=== PATIENT | male | born 1965 | race Caucasian/White ===

== ENCOUNTER 2018-05-07 14:25 | Inpatient (IN) | payer OTHER ==
[2018-05-07] VITALS: BP 113/54
[~2018-05-07] VITALS: Ht 175.3 cm; Wt 64.0 kg
[2018-05-07] MEDS ORDERED: DEXTROSE 50%-WATER 50 ML DISP.SYRIN ONE (14:41)
[2018-05-07 14:59] LABS: BASOPHILS % (AUTO) 0.3 % (0.0-2.0); EOSINOPHILS % (AUTO) 0.1 % (0.0-6.0); HEMATOCRIT 33 % (39-51); HEMOGLOBIN 10.8 g/dL (13.5-17.5); MEAN CORPUSCULAR HGB CONC 33 g/dl (31.0-36.0); MEAN CORPUSCULAR VOLUME 94 fL (80-96); MONOCYTES # (AUTO) 0.5 /CMM (0.1-1.30); MONOCYTES % (AUTO) 5.1 % (2.0-12.0); NEUTROPHILS # (AUTO) 7.4 /CMM (1.8-8.9); NEUTROPHILS % (AUTO) 83.5 % (43.0-81.0); PLATELET COUNT (AUTO) 362 /CMM (150-450); RDW COEFFICIENT OF VARIATION 23.5 (11.5-15.0); RED BLOOD CELL COUNT(AUTO) 3.54 MIL/uL (4.5-6.0); WHITE BLOOD COUNT (AUTO) 8.9 K/uL (4.3-11.0)
[2018-05-07] MEDS ORDERED: IV NS 0.9% 1,000 ML BAG IV ONE (15:00)
[2018-05-07] MEDS ORDERED: VANCOMYCIN 1 GM in IV D5W 250 ML IV ONE (15:00)
[2018-05-07] MEDS ORDERED: DEXTROSE 50%-WATER 50 ML DISP.SYRIN IVP ONE (15:00)
[2018-05-07] MEDS ORDERED: IV NS 0.9% 1,000 ML IV ONE (15:00)
[2018-05-07] MEDS ORDERED: PIPERACILLIN /TAZOBACTAM 3.375 G in IV D5W 50 ML IV ONE (15:00)
[2018-05-07 15:15] LABS: ALANINE AMINOTRANSFERASE 253 U/L (12-78); ALBUMIN 2.1 g/dL (3.4-5.0); ALKALINE PHOSPHATASE 120 U/L (46-116); ASPARTATE AMINOTRANSFERASE 336 U/L (15-37); BILIRUBIN,DIRECT 1.1 mg/dL (0.0-0.2); BILIRUBIN,TOTAL 2.4 mg/dL (0.2-1.0); CALCIUM, SERUM 8.8 mg/dL (8.5-10.1); CHLORIDE 93 mmol/L (98-107); CREATININE 1.7 mg/dL (0.6-1.3); GLUCOSE 341 mg/dL (74-106); INR 2.59 (0.85-1.15); POTASSIUM 4.6 mmol/L (3.5-5.1); SODIUM SERUM 130 mmol/L (136-145); TOTAL PROTEIN, SERUM 6.3 g/dL (6.4-8.2); UREA NITROGEN, BLOOD 31 mg/dL (7-18)
[2018-05-07 15:17] LABS: CARBON DIOXIDE 10 mmol/L (21-32); TROPONIN I 0.157 ng/mL (0.00-0.056)
[2018-05-07 15:31] LABS: ABG OXYGEN SATURATION 93.8 % (92.0-98.5); ABG PCO2 11.5 mmHg (35.0-45.0); ABG PH 7.303 (7.350-7.450); ABG PO2 88.6 mmHg (75.0-100.0); AaDO2 154.7 mmHg; MetHb 0.6 % (0.0-1.5); O2Hb 92.3 % (94.0-97.0); SITE, ABG Right Radial; VENT MODE, BG 4L NASAL CANNULA
--- NOTE | 2018-05-07 16:04 | NUR ---
pt extremities cool to touch unable to get accurate O2 sat readings. Oxygen applied- MD aware ABG ordered
[2018-05-07] MEDS ORDERED: IV NS 0.9% 1,000 ML BAG IV PRN (17:00)
[2018-05-07] MEDS ORDERED: LORA-258 PO (17:10)
[2018-05-07] MEDS ORDERED: FAMO-131 PO (17:10)
[2018-05-07] MEDS ORDERED: ESCI5TAB PO (17:10)
[2018-05-07] MEDS ORDERED: FERR325T24 PO (17:10)
[2018-05-07] MEDS ORDERED: ENOX40DI SQ (17:10)
[2018-05-07] MEDS ORDERED: MELA5TAB PO (17:10)
[2018-05-07] MEDS ORDERED: FURO-145 PO (17:10)
[2018-05-07] MEDS ORDERED: LIDO30AD10 TP (17:10)
[2018-05-07] MEDS ORDERED: TRAM50TA2 PO (17:10)
[2018-05-07] MEDS ORDERED: NAFC2VIA IV (17:10)
[2018-05-07] MEDS ORDERED: GABA300C PO (17:10)
[2018-05-07] MEDS ORDERED: ASCO-340 PO (17:10)
[2018-05-07] MEDS ORDERED: BACL5TAB PO (17:10)
[2018-05-07] MEDS ORDERED: QUET50TA PO (17:10)
[2018-05-07] MEDS ORDERED: CAPT12.53 PO (17:10)
--- NOTE | 2018-05-07 17:24 | NUR ---
Ct back from CT. Dr Castle in to see patient-pt for transfer to [facility]- [facility] w/KYLIE Escobar. Transported to [facility] per rivera w/RN
--- NOTE | 2018-05-07 17:45 | NUR ---
[facility]/RN INITIAL NOTES RECEIVED PT FROM ER, VIA JAYCEE. ALERT, APPEARS DROWSY AND CONFUSED. PLACED ON TELEMONITOR, SINUS TACHY ON TELEMONITOR. SAFETY MEASURES IN PLACED. PERTINENT ASSESSMENT DONE. VS TAKEN. AWAITING FOR ADMISSION ORDER. WILL CONT TO MONITOR Addendum: 05/07/18 at 2003 by CECILIA GOULD RN PRATIK PICC LINE INTACT AND PATENT, STILL FOR URINE COLLECTION.
[2018-05-07 17:50] VITALS: BP 126/60
[2018-05-07] MEDS ORDERED: ENOXAPARIN SODIUM 40 MG/0.4 ML DISP.SYRIN SQ SCH (18:00)
[2018-05-07] MEDS ORDERED: ZOLPIDEM TARTRATE 5 MG TABLET PO PRN (18:00)
[2018-05-07] MEDS ORDERED: HYDROCODONE/APAP 5/325MG 1 EACH TABLET PO PRN (18:00)
[2018-05-07] MEDS ORDERED: Z GUARD REMEDY 2 OZ OINT TP PRN (18:00)
[2018-05-07] MEDS ORDERED: MAG HYDROX/AL HYDROX/SIMETH 30 ML UDC PO PRN (18:00)
[2018-05-07] MEDS ORDERED: ACETAMINOPHEN 325 MG TABLET PO PRN (18:00)
[2018-05-07] MEDS ORDERED: ONDANSETRON HCL/PF 4 MG/2 ML VIAL IVP PRN (18:00)
[2018-05-07] MEDS ORDERED: MAGNESIUM HYDROXIDE 30 ML UDC PO PRN (18:00)
--- NOTE | 2018-05-07 18:00 | NUR ---
RN NOTES 1800 DUE LOVENOX SQ HELD, PT/INR HIGH
[2018-05-07] MEDS ORDERED: FEE PK DOSING 1 MIN EA MC ONE (18:34)
[2018-05-07 20:00] VITALS: BP 122/56
--- NOTE | 2018-05-07 20:00 | NUR ---
TELE-TD/CHAIR AND COUCH MAKER SPOKE WITH KHUSHBOO EQUAL OPPORTUNITY OFFICER REGARDING TROPONIN RESULT 0.245 NEW ORDERS RECEIVED AND CARRIED OUT. WILL CONTINUE TO MONITOR CLOSELY.
[2018-05-07] MEDS ORDERED: ASPIRIN 325 MG TABLET PO ONE (20:30)
[2018-05-07] MEDS: LIDOCAINE 5% (PATCH) 1 EA PATCH TP SCH (21:02)
[2018-05-07] MEDS: QUETIAPINE FUMARATE 25 MG TABLET PO SCH (21:03)
[2018-05-07] MEDS: PIPERACILLIN /TAZOBACTAM 4.5 G in IV D5W 50 ML IV SCH (21:03)
[2018-05-07] MEDS ORDERED: Medication Not On Formulary EA (Melatonin 10 MG) PO SCH (22:00)
[2018-05-08] VITALS (7 sets, daily range): BP systolic 113–134; BP diastolic 54–65
[2018-05-08] MEDS: Sodium Bicarbonate 100 MEQ in IV D5W 1,000 ML IV PRN ×3 (02:12→21:49)
[2018-05-08] MEDS: PIPERACILLIN /TAZOBACTAM 4.5 G in IV D5W 50 ML IV SCH ×4 (02:45→21:54)
[2018-05-08] MEDS: VANCOMYCIN 0.75 GM in IV D5W 250 ML IV SCH ×2 (03:33→16:04)
[2018-05-08] MEDS: QUETIAPINE FUMARATE 25 MG TABLET PO SCH (05:08)
--- NOTE | 2018-05-08 07:30 | NUR ---
[facility] RN NOTES RECEIVED PT IN NO ACUTE DISTRESS IN BED. PT IS A/O X 1-2 AND CONFUSED KNOWN. PT IS ON O2 VIA N/C @4 LTRS AND TOLERATING WELL. PT NOT C/O ANY SOB, DIFFICULTY BREATHING OR PAIN AT THIS TIME. LEFT PICC THAT IS CLEAN DRY INTACT. BED IN LOW LOCK POSITION WITH RIALS UP X 2. CALL LIGHT WITHIN REACH AND ALL SAFETY MEASURE ENSURED AND CARRIED OUT. WILL CONTINUE TO MONITOR.
[2018-05-08 07:31] LABS: BASOPHILS # (AUTO) 0.2 /CMM (0.0-0.2); BASOPHILS % (AUTO) 1.3 % (0.0-2.0); EOSINOPHILS % (AUTO) 0.1 % (0.0-6.0); HEMATOCRIT 33 % (39-51); HEMOGLOBIN 10.4 g/dL (13.5-17.5); LYMPHOCYTES # (AUTO) 1.8 /CMM (0.8-4.8); LYMPHOCYTES % (AUTO) 14.2 % (20.0-44.0); MEAN CORPUSCULAR HGB CONC 32 g/dl (31.0-36.0); MEAN CORPUSCULAR VOLUME 93 fL (80-96); MONOCYTES # (AUTO) 1.2 /CMM (0.1-1.30); MONOCYTES % (AUTO) 9.8 % (2.0-12.0); NEUTROPHILS # (AUTO) 9.4 /CMM (1.8-8.9); NEUTROPHILS % (AUTO) 74.6 % (43.0-81.0); PLATELET COUNT (AUTO) 303 /CMM (150-450); RDW COEFFICIENT OF VARIATION 24.3 (11.5-15.0); RED BLOOD CELL COUNT(AUTO) 3.56 MIL/uL (4.5-6.0); WHITE BLOOD COUNT (AUTO) 12.6 K/uL (4.3-11.0)
[2018-05-08 07:55] LABS: THYROID STIMULATING HORMONE 5.375 uIU/mL (0.358-3.74)
[2018-05-08 08:07] LABS: ALBUMIN 2.1 g/dL (3.4-5.0); BILIRUBIN,TOTAL 2.1 mg/dL (0.2-1.0); CALCIUM, SERUM 8.7 mg/dL (8.5-10.1); CREATININE 1.7 mg/dL (0.6-1.3); PHOSPHORUS 5.4 mg/dL (2.5-4.9); POTASSIUM 4.2 mmol/L (3.5-5.1); TOTAL PROTEIN, SERUM 6.4 g/dL (6.4-8.2)
[2018-05-08] MEDS: ASPIRIN 81 MG TAB.CHEW PO SCH (08:51)
[2018-05-08] MEDS: BACLOFEN (10 MG) 10 MG TABLET PO SCH ×3 (08:53→17:10)
[2018-05-08] MEDS: GABAPENTIN 300 MG CAPSULE PO SCH ×2 (08:53→17:10)
[2018-05-08] MEDS: ASCORBIC ACID 500 MG TABLET PO SCH (08:54)
[2018-05-08] MEDS: LIDOCAINE 5% (PATCH) 1 EA PATCH TP SCH ×2 (08:54→21:00)
[2018-05-08] MEDS ORDERED: ESCITALOPRAM OXALATE (10 MG) 10 MG TABLET PO SCH (09:00)
[2018-05-08] MEDS: ALBUTEROL HALF STRENGTH 1.25 MG/3 ML VIAL.NEB NEB SCH ×3 (11:00→19:51)
[2018-05-08] MEDS: IPRATROPIUM NEB FS 0.5 MG/2.5 ML AMPUL.NEB NEB SCH ×3 (11:00→19:51)
[2018-05-08 13:05] LABS: CALCIUM, SERUM 8.6 mg/dL (8.5-10.1); CREATININE 1.7 mg/dL (0.6-1.3); POTASSIUM 3.6 mmol/L (3.5-5.1)
[2018-05-08 13:20] LABS: ALBUMIN 2.1 g/dL (3.4-5.0); TOTAL PROTEIN, SERUM 6.3 g/dL (6.4-8.2)
[2018-05-08 14:34] LABS: INR 2.69 (0.87-1.13)
--- NOTE | 2018-05-08 19:30 | NUR ---
RN INITIAL SHIFT NOTES RECEIVED PATIENT IN BED, AWAKE, ALERT AND ORIENTED X1 TO SELF, RESPONSIVE TO TACTILE STIMULI, UNABLE TO FOLLOW COMMANDS. WHILE RESTING, BREATHING EVEN AND NONLABORED, HOWEVER PATIENT NOTED TO BE SHORT OF BREATH UPON TACTILE STIMULATION. ON VP OF CUSTOMER EXPERIENCE STRATEGY, SHOWING SINUS TACHYCARDIA. TOLERATING O2 VIA NC @ 3LPM. RIGHT UPPER ARM PICC PATENT AND INTACT, FLUSHED WITH NS, ONGOING IVF BICARB GTT INFUSING ORDERED. WILL CONTINUE TO CLOSELY MONITOR. WILL CONTINUE TO CLOSELY MONITOR
--- NOTE | 2018-05-08 19:30 | NUR ---
[facility] RN CLOSING NOTES PATIENT RESTING COMFORTABLE NO AGITATION NOTED ON 4LTRS N/C. NO ADVERSE RXN TO ATB THERAPY. REPORT GIVEN TO ONCOMING NURSE WITH ALL NEW ORDERS INDORSED.
--- NOTE | 2018-05-08 22:30 | NUR ---
RN NOTES MD WITH ORDER FOR LASIX 20MG IV X1. PATIENT NOTED WITH SACRAL WOUND AND BLADDER INCONTINENCE, MD NOTIFIED. PER DR MANZO, INSERT MIRELES CATHETER
[2018-05-08] MEDS ORDERED: FUROSEMIDE 20 MG/2 ML VIAL IV ONE (23:00)
--- NOTE | 2018-05-08 23:30 | NUR ---
RN NOTES DR MANZO WITH STAT ORDER FOR LIPASE LEVEL. RESULT RELAYED TO MD, NO NEW ORDERS AT THIS TIME
[2018-05-08 23:40] LABS: APPEARANCE,URINE SL CLOUDY (CLEAR); BILIRUBIN,URINE NEGATIVE (NEGATIVE); BLOOD, URINE 1+ Ery/uL (NEGATIVE); COLOR,URINE ORANGE (YELLOW); KETONES,URINE NEGATIVE (NEGATIVE); LEUKOCYTE ESTERASE ,URINE NEGATIVE (NEGATIVE); NITRITE, URINE NEGATIVE (NEGATIVE); PROTEIN,URINE 2+ mg/dl (NEGATIVE); UGLUCOSE NEGATIVE (NEGATIVE); UROBILINOGEN,URINE 0.2 EU/dL (0.2)
[2018-05-08 23:54] LABS: BACTERIA,URINE None seen /HPF (None Seen)
[2018-05-08 23:54] LABS: TROPONIN I 0.203 ng/mL (0.00-0.056)
[2018-05-08 23:55] LABS: FINE GRANULAR CASTS,URINE Rare /LPF (None Seen); SQUAMOUS EPITHELIAL CELL,UR Moderate /HPF (None Seen)
[2018-05-09] VITALS: BP 125/46
[2018-05-09] MEDS: IPRATROPIUM NEB FS 0.5 MG/2.5 ML AMPUL.NEB NEB SCH ×4 (01:38→19:32)
[2018-05-09] MEDS: LEVALBUTEROL HCL NEB 1.25 MG/0.5 ML VIAL.NEB NEB SCH ×4 (01:38→19:32)
--- NOTE | 2018-05-09 03:00 | NUR ---
RN NOTES PATIENT NOTED WITH EPISODE OF VTACH, [address] MANZO MADE AWARE, NO NEW ORDERS RECEIVED, CONTINUE TO MONITOR
--- NOTE | 2018-05-09 03:34 | NUR ---
RN INITIAL SHIFT NOTES RECEIVED PATIENT IN BED, AWAKE, ALERT AND ORIENTED X1 TO SELF, RESPONSIVE TO TACTILE STIMULI, UNABLE TO FOLLOW COMMANDS. WHILE RESTING, BREATHING EVEN AND NONLABORED, HOWEVER PATIENT NOTED TO BE SHORT OF BREATH UPON TACTILE STIMULATION. ON FLORAL DESIGNER, SHOWING SINUS TACHYCARDIA. TOLERATING O2 VIA NC @ 3LPM. RIGHT UPPER ARM PICC PATENT AND INTACT, FLUSHED WITH NS, ONGOING IVF BICARB GTT INFUSING ORDERED. WILL CONTINUE TO CLOSELY MONITOR. WILL CONTINUE TO CLOSELY MONITOR Addendum: 05/09/18 at 0340 by JONAS KUHN RN WRONG TIME DOCUMENTED
[2018-05-09 04:00] VITALS: BP 114/54
[2018-05-09 04:22] LABS: BASOPHILS % (AUTO) 0.2 % (0.0-2.0); EOSINOPHILS % (AUTO) 0.2 % (0.0-6.0); HEMATOCRIT 34 % (39-51); HEMOGLOBIN 10.6 g/dL (13.5-17.5); LYMPHOCYTES # (AUTO) 1.4 /CMM (0.8-4.8); LYMPHOCYTES % (AUTO) 11.3 % (20.0-44.0); MEAN CORPUSCULAR HGB CONC 31 g/dl (31.0-36.0); MEAN CORPUSCULAR VOLUME 93 fL (80-96); MONOCYTES # (AUTO) 0.7 /CMM (0.1-1.30); MONOCYTES % (AUTO) 5.3 % (2.0-12.0); NEUTROPHILS # (AUTO) 10.3 /CMM (1.8-8.9); PLATELET COUNT (AUTO) 311 /CMM (150-450); RDW COEFFICIENT OF VARIATION 23.8 (11.5-15.0); RED BLOOD CELL COUNT(AUTO) 3.67 MIL/uL (4.5-6.0); WHITE BLOOD COUNT (AUTO) 12.4 K/uL (4.3-11.0)
[2018-05-09 04:25] LABS: INR 2.97 (0.87-1.13)
[2018-05-09] MEDS ORDERED: PIPERACILLIN /TAZOBACTAM 3.375 G VIAL IV ONE (04:37)
[2018-05-09 04:39] LABS: IRON, SERUM 24 ug/dl (50-175); TOTAL IRON BINDING CAPACITY 190 ug/dl (250-450)
[2018-05-09 04:51] LABS: ALBUMIN 1.8 g/dL (3.4-5.0); ALKALINE PHOSPHATASE 110 U/L (46-116); B-TYPE NATRIURETIC PEPTIDE 16509 PG/ML (0-125); BILIRUBIN,TOTAL 2.2 mg/dL (0.2-1.0); CALCIUM, SERUM 8.5 mg/dL (8.5-10.1); CARBON DIOXIDE 24 mmol/L (21-32); CHLORIDE 94 mmol/L (98-107); CREATININE 1.6 mg/dL (0.6-1.3); GLUCOSE 51 mg/dL (74-106); LIPASE 127 U/L (73-393); MAGNESIUM 1.8 mg/dL (1.8-2.4); PHOSPHORUS 4.7 mg/dL (2.5-4.9); POTASSIUM 3.3 mmol/L (3.5-5.1); SODIUM SERUM 133 mmol/L (136-145); TOTAL PROTEIN, SERUM 5.8 g/dL (6.4-8.2); UREA NITROGEN, BLOOD 45 mg/dL (7-18)
[2018-05-09] MEDS: VANCOMYCIN 0.75 GM in IV D5W 250 ML IV SCH (04:57)
[2018-05-09] MEDS ORDERED: PIPERACILLIN /TAZOBACTAM 3.375 G in IV D5W 50 ML IV SCH (05:00)
[2018-05-09 05:40] LABS: ASPARTATE AMINOTRANSFERASE 4361 U/L (15-37)
[2018-05-09 05:41] LABS: ALANINE AMINOTRANSFERASE 1842 U/L (12-78)
--- NOTE | 2018-05-09 07:00 | NUR ---
RN NOTES RECEIVED PATIENT ON BED, ALERT/AWAKE, RESPONSIVE TO TACTILE STIMULI, DOES NOT FOLLOW COMMAND. ON 3 L O2 N/C , ON TELE SR HR IN 110'S , MIRELES DRINING TO GRAVITY , RIGHT UPPER ARM PICC LINE SITE CLEAN , DRY AND INTACT, SR UP x3, CALL LIGHT WITHIN EASY REACH, BED LOCKED AND IN LOWEST POSITION, CONTINUE TO MONITOR .
--- NOTE | 2018-05-09 07:00 | NUR ---
RN NOTES PATIENT IN BED, ASLEEP, EYES CLOSED. NO ACUTE DISTRESS NOTED AT THIS TIME. WILL ENDORSE THE PATIENT TO THE AM SHIFT NURSE FOR TAY
[2018-05-09 08:00] VITALS: BP 126/58
[2018-05-09] MEDS: ASCORBIC ACID 500 MG TABLET PO SCH (08:07)
[2018-05-09] MEDS: GABAPENTIN 300 MG CAPSULE PO SCH ×2 (08:07→16:28)
[2018-05-09] MEDS: ASPIRIN 81 MG TAB.CHEW PO SCH (08:08)
[2018-05-09] MEDS: LIDOCAINE 5% (PATCH) 1 EA PATCH TP SCH (08:08)
[2018-05-09] MEDS: BACLOFEN (10 MG) 10 MG TABLET PO SCH ×3 (08:08→16:30)
[2018-05-09] MEDS ORDERED: LIDOCAINE 5% (PATCH) 1 EA PATCH TP SCH (09:00)
--- NOTE | 2018-05-09 09:00 | NUR ---
RN NOTES DR SCHWARZ AND JOHNNY JOINTER SUBMARINE CABLE NOTIFIED REGARDING T=100.1 AXILLARY , APPLIED COOLING MEASURES PER MD ORDER
--- NOTE | 2018-05-09 10:30 | NUR ---
[facility] RN NOTE: SPOKE WITH ANIYA, SON OF THE PATIENT AND MADE HIM AWARE THAT HE NEEDED TO SIGN THE REQUEST FOR THE RELEASE OF RECORD IN ORDER TO REQUEST THE MEDICAL RECORDS OF THE PATIENT AT [facility]. PER, ANIYA, HE WILL COME BY AFTER LUNCH AND WILL SIGN THE PAPER. PRIMARY NURSE BRITTNY MADE AWARE.
--- NOTE | 2018-05-09 11:04 | NUR ---
[facility] RN NOTE: INFORMED DR. JACKSON RE: THE PATIENT'S CURRENT CONDITION OF BEING LETHARGIC AND UNABLE TO SWALLOW AT THIS TIME. PER SPEECH THERAPIST, IT IS SAFE TO KEEP THE PATIENT NPO AT THIS TIME. WAS INFORMED OF THE PATIENT'S BLOOD GLUCOSE RESULT 51 FROM THE AM LABS. MD WITH ORDER TO KEEP PATIENT NPO AND A MAINTENANCE IV FLUID D5NS@ 60ML/HR. ORDER, NOTED AND CARRIED OUT.
[2018-05-09] MEDS: IV D5/ 0.9% NACL 1,000 ML IV PRN (11:26)
[2018-05-09 12:00] VITALS: BP 126/54
[2018-05-09] MEDS: PIPERACILLIN /TAZOBACTAM 3.375 G in IV D5W 50 ML IV SCH ×2 (12:04→18:07)
[2018-05-09] MEDS ORDERED: POTASSIUM CL. PREMIX PERIPHER. 50 ML IV SCH (12:30)
[2018-05-09 16:00] VITALS: BP 132/56
[2018-05-09] MEDS: VANCOMYCIN 500 MG in IV D5W 100 ML IV SCH (16:28)
--- NOTE | 2018-05-09 18:00 | NUR ---
RN NOTES NO SIGNIFICANT CHANGES NOTED ON THIS SHIFT , RECORD RELEASE AUTHORIZATION SIGNED BY PT SON, PT NPO AT THIS TIME PER MD ORDR , SR UP x3, CALL LIGHT WITHIN EASY REACH, BED LOCKED AND IN LOWEST POSITION, WILL ENDOSE TO SOLAR PHOTOVOLTAIC CREW LEAD NURSE FOR CONTINUITY OF CARE
[2018-05-09 20:00] VITALS: BP 103/43
--- NOTE | 2018-05-09 20:05 | NUR ---
[facility] RN NOTES RECEIVED PATIENT REPORT FROM AM NURSE. PATIENT IN BED, CONFUSED AND LETHARGIC, RESPONSIVE TO TACTILE STIMULI, DOES NOT FOLLOW COMMAND. ON 3 L O2 N/C , ON TELE SR HR 96 , MIRELES DRAINING ON GRAVITY , RIGHT UPPER ARM PICC LINE PATIENT, SITE CLEAN , DRY AND INTACT, SR UP x3, CALL LIGHT WITHIN EASY REACH, BED LOCKED AND IN LOWEST POSITION. WILL CONTINUE TO MONITOR .
[2018-05-10] VITALS: BP 103/49
[2018-05-10] MEDS: PIPERACILLIN /TAZOBACTAM 3.375 G in IV D5W 50 ML IV SCH ×5 (00:47→23:32)
[2018-05-10] MEDS: IPRATROPIUM NEB FS 0.5 MG/2.5 ML AMPUL.NEB NEB SCH ×4 (01:37→20:27)
[2018-05-10] MEDS: LEVALBUTEROL HCL NEB 1.25 MG/0.5 ML VIAL.NEB NEB SCH ×2 (01:37→07:32)
[2018-05-10 04:00] VITALS: BP 120/50
[2018-05-10] MEDS: VANCOMYCIN 500 MG in IV D5W 100 ML IV SCH ×2 (04:43→16:17)
[2018-05-10 06:43] LABS: CALCIUM, SERUM 8.6 mg/dL (8.5-10.1); CREATININE 1.3 mg/dL (0.6-1.3); MAGNESIUM 1.8 mg/dL (1.8-2.4)
--- NOTE | 2018-05-10 07:15 | NUR ---
GEOPHYSICAL SUPPORT SPECIALIST INITIAL NOTES RECEIVED PATIENT IN BED. HOB ELEVATED. PT ASLEEP BUT AROUSABLE. PT ON 3L O2 MONAE. TANIYA NOTED THROUGHOUT LUNG DAY. RT AT BEDSIDE. IV FLUIDS RUNNING VIA LA PICC LINE. SOUTH COLORED URINE DRAINING THROUGH F/C. ON TELE ST 104 WITH BBB. SAFETY PRECAUTIONS IN PLACE. CALL LIGHT IN REACH. WILL CONT TO MONITOR.
[2018-05-10 08:00] VITALS: BP 114/51
[2018-05-10] MEDS: IV D5/ 0.9% NACL 1,000 ML IV PRN (08:01)
[2018-05-10] MEDS: BACLOFEN (10 MG) 10 MG TABLET PO SCH ×4 (09:00→17:00)
[2018-05-10] MEDS: ASPIRIN 81 MG TAB.CHEW PO SCH ×2 (09:00→11:49)
[2018-05-10] MEDS: ASCORBIC ACID 500 MG TABLET PO SCH ×2 (09:00→11:48)
[2018-05-10] MEDS: GABAPENTIN 300 MG CAPSULE PO SCH ×4 (09:00→17:00)
[2018-05-10] MEDS: LIDOCAINE 5% (PATCH) 1 EA PATCH TP SCH (09:39)
--- NOTE | 2018-05-10 10:00 | NUR ---
LOGISTICS AND PLANNING MANAGER NOTES DR FOSTER ORDERED NGT PLACEMENT. ORDERED ABD XRAY FOR PLACEMENT VERIFICATION. INSERTED NGT.
--- NOTE | 2018-05-10 10:00 | NUR ---
RN NOTES NGT INSERTED IN L NARE PER DR Marci FOSTER ORDER FOR TUBE FEEDING.
[2018-05-10] MEDS: POTASSIUM CL. PREMIX PERIPHER. 50 ML IV SCH ×10 (11:08→21:55)
[2018-05-10 12:00] VITALS: BP 111/56
[2018-05-10] MEDS ORDERED: JEVITY 1.2 CAL 1,000 ML BOTTLE GT PRN (13:30)
[2018-05-10] MEDS: ALBUTEROL HALF STRENGTH 1.25 MG/3 ML VIAL.NEB NEB SCH ×3 (13:57→20:30)
[2018-05-10 16:00] VITALS: BP 124/68
--- NOTE | 2018-05-10 16:37 | NUR ---
RN NOTES DARK BLOODY GASTRIC RESIDUAL NOTED, ALYSSA RETAIL SUPPORT SPECIALIST NOTIFED , TF ON HOLD PER RETAIL SUPPORT SPECIALIST ORDER .
--- NOTE | 2018-05-10 18:42 | NUR ---
RN NOTES ORDER RECEIVED TO START TF AT 10CC/HR VIA NGT , VSS STABLE, SR UP x3, CALL LIGHT WITHIN EASY REACH, NO SINGICANT CHANGES NOTED ON THIS SHIFT, WILL ENDORSE TO WAFER FAB TECHNICIAN NURSE FOR CONTINUITY OF CARE.
[2018-05-10] MEDS: JEVITY 1.2 CAL 1,000 ML BOTTLE GT PRN (19:48)
[2018-05-10 20:00] VITALS: BP 142/63
--- NOTE | 2018-05-10 20:00 | NUR ---
TELE 1 RN NOTE PT IN BED LETHARGIC, BREATHING RATE 28. O2 SAT 94% ON 3 L VIA N/C. NO S/S OF PAIN NOTED. ON MONITOR ST HR 128. F/C INTACT DRAINING SOUTH COLOR URINE. STARTED PT ON GTF JEVITY AT 10 ML/HR, 50 ML RESIDUAL AT THIS TIME, COLOR DARK REDDISH COLOR. PRATIK PICC LINE INTACT AND PATENT INFUSING D5NS @ 100 ML/HR. NO S/S OF INFILTRATION NOTED. REPOSITION HIM Q2H, KEPT HIM DRY AND CLEAN. ALL NEEDS ATTENDED. VSS. CONTINUE TO MONITOR HIM.
--- NOTE | 2018-05-10 20:30 | NUR ---
albuterol not given due to hr > 120 bpm. no resp distress noted. suresh rizzo aware Addendum: 05/10/18 at 2031 by YUNIOR WEAVER RT Amended: Links added.
[2018-05-11] VITALS: BP 135/61
[2018-05-11] MEDS: TRAMADOL HCL 50 MG TABLET PO PRN (01:39)
--- NOTE | 2018-05-11 01:39 | NUR ---
TELE 1 RN NOTE PT MOVING AROUND HIS HEAD, RAPID RESP. ULTRAM 50 MG VIA NGT GIVEN. CONTINUE TO MONITOR HIM ALSO REPOSITION HIM Q2H.
[2018-05-11] MEDS: ALBUTEROL HALF STRENGTH 1.25 MG/3 ML VIAL.NEB NEB SCH ×4 (01:55→20:00)
[2018-05-11] MEDS: IPRATROPIUM NEB FS 0.5 MG/2.5 ML AMPUL.NEB NEB SCH ×4 (01:55→20:00)
--- NOTE | 2018-05-11 03:01 | NUR ---
TELE 1 RN NOTE NGT RESIDUAL NOTED 200 ML, DARK BROWNISH COLOR. CONTINUE WITH NGT FEEDING AT 10 ML/HR. CONTINUE TO MONITOR HIM.
[2018-05-11 04:00] VITALS: BP 135/58
[2018-05-11] MEDS: VANCOMYCIN 500 MG in IV D5W 100 ML IV SCH ×2 (04:26→16:00)
[2018-05-11] MEDS: IV D5/ 0.9% NACL 1,000 ML IV PRN (04:37)
[2018-05-11] MEDS: PIPERACILLIN /TAZOBACTAM 3.375 G in IV D5W 50 ML IV SCH ×4 (05:57→23:21)
[2018-05-11 06:36] LABS: HEMATOCRIT 34 % (39-51); HEMOGLOBIN 10.7 g/dL (13.5-17.5); MEAN CORPUSCULAR HGB CONC 31 g/dl (31.0-36.0); MEAN CORPUSCULAR VOLUME 96 fL (80-96); PLATELET COUNT (AUTO) 370 /CMM (150-450); RDW COEFFICIENT OF VARIATION 24.8 (11.5-15.0); RED BLOOD CELL COUNT(AUTO) 3.57 MIL/uL (4.5-6.0); WHITE BLOOD COUNT (AUTO) 13.3 K/uL (4.3-11.0)
--- NOTE | 2018-05-11 06:53 | NUR ---
TELE 1 RN NOTE PT IN BED LETHARGIC, BODY TEMP WNL. GTF INFUSING WELL AT 10 ML/HR, RESIDUAL 180 ML. ON TELE MONITOR SR HR 64. ALL NEEDS ATTENDED. SIDE RAILS UP X 3 AND CALL LIGHT WITHIN REACH. WILL ENDORSE TO DAY SHIFT NURSE FOR CONTINUE TO CARE.
[2018-05-11 07:01] LABS: CALCIUM, SERUM 9.4 mg/dL (8.5-10.1); CREATININE 1.6 mg/dL (0.6-1.3); MAGNESIUM 2.1 mg/dL (1.8-2.4); PHOSPHORUS 6.4 mg/dL (2.5-4.9); POTASSIUM 5.7 mmol/L (3.5-5.1)
[2018-05-11 08:00] VITALS: BP 137/58
[2018-05-11] MEDS: ASPIRIN 81 MG TAB.CHEW PO SCH (08:48)
[2018-05-11] MEDS: BACLOFEN (10 MG) 10 MG TABLET PO SCH ×3 (08:49→17:38)
[2018-05-11] MEDS: ASCORBIC ACID 500 MG TABLET PO SCH (08:49)
[2018-05-11] MEDS: GABAPENTIN 300 MG CAPSULE PO SCH ×2 (08:49→17:38)
[2018-05-11] MEDS: LIDOCAINE 5% (PATCH) 1 EA PATCH TP SCH (08:49)
[2018-05-11 10:01] LABS: LYMPHOCYTES % (MANUAL) 9 % (16-48); MONOCYTES % (MANUAL) 11 % (0-11.0); NEUTROPHILS % (MANUAL) 80 (42-76)
--- NOTE | 2018-05-11 11:20 | NUR ---
WOUND CARE CONSULT: PT PRESENTS WITH SACRAL ULCER, STAGE 2, PRESENT ON ADMISSION. RECOMMENDATIONS MADE FOR WOUND CARE AND SKIN PROTECTION. DISCUSSED WITH NURSING STAFF. PT ON [facility] LOW AIRSS BED. WILL SEE PRN. MARIE IN AGREEMENT WITH PLAN OF CARE. CURRENT ARABELLA SCORE IS 12. Addendum: 05/11/18 at 1121 by MICHAEL RANDOLPH WNDNU Amended: Links added.
[2018-05-11] MEDS ORDERED: HYDROGEL DRESSING 90 GM TUBE TP PRN (11:30)
[2018-05-11 12:00] VITALS: BP 128/60
[2018-05-11] MEDS: HYDROGEL DRESSING 90 GM TUBE TP SCH (14:25)
[2018-05-11 17:00] VITALS: BP 136/68
[2018-05-11 20:00] VITALS: BP 130/72
--- NOTE | 2018-05-11 20:13 | NUR ---
CHOCOLATE DIPPER OPENING NOTES REPORT RECEIVED FROM AM RN. PATIENT A/A/O X1, NON-VERBAL & UNABLE TO MAKE NEEDS KNOWN. RESPONSIVE TO VERBAL & TACTILE STIMULI. BREATHING EVEN & UNLABORED, TOLERATING O2 @ 3LPM VIA NC. NO RESPIRATORY DISTRESS NOTED. ON TELE W/ SINUS TACH, HR 115. LEFT UPPER ARM PICC LINE INTACT & PATENT W/ DRESSING CDI & IVF D5 NS INFUSING WELL @ 60 ML/HR. NGT IN LEFT NARE FLUSHING WELL W/ GTF RUNNING JEVITY RUNNING @ 20 ML/HR. DARK BROWN RESIDUAL NOTED BUT LESS THAN 300 ML. MIRELES CATH DRAINING YELLOW URINE. NO S/S OF PAIN OR DISCOMFORT @ THIS TIME. SAFETY MEASURES IN PLACE W/ SIDE RAISL UP & BED LOCKED & IN LOWEST POSITION. TURNED & REPOSITIONED. WILL CONTINUE TO MONITOR.
[2018-05-11] MEDS ORDERED: VANCOMYCIN 500 MG in IV D5W 100 ML IV SCH (22:00)
[2018-05-12] VITALS: BP 135/61
[2018-05-12] MEDS: TRAMADOL HCL 50 MG TABLET PO PRN (00:15)
--- NOTE | 2018-05-12 00:34 | NUR ---
STREETCAR REPAIRER HELPER NOTES TF RESIDUALS = 450ML. GTF HELD PER MD ORDER TO HOLD IF RESIDUAL >300ML. WILL CONTINUE TO MONITOR.
[2018-05-12] MEDS: ALBUTEROL HALF STRENGTH 1.25 MG/3 ML VIAL.NEB NEB SCH ×4 (01:55→19:35)
[2018-05-12] MEDS: IPRATROPIUM NEB FS 0.5 MG/2.5 ML AMPUL.NEB NEB SCH ×4 (01:55→19:35)
[2018-05-12] MEDS: IV D5/ 0.9% NACL 1,000 ML IV PRN ×2 (03:26→15:33)
[2018-05-12 04:00] VITALS: BP 139/73
[2018-05-12] MEDS: PIPERACILLIN /TAZOBACTAM 3.375 G in IV D5W 50 ML IV SCH ×4 (05:41→23:29)
[2018-05-12 06:41] LABS: CALCIUM, SERUM 9.6 mg/dL (8.5-10.1); CREATININE 1.8 mg/dL (0.6-1.3); POTASSIUM 4.9 mmol/L (3.5-5.1)
[2018-05-12 06:48] LABS: ALBUMIN 2.1 g/dL (3.4-5.0); BILIRUBIN,DIRECT 3.4 mg/dL (0.0-0.2); BILIRUBIN,TOTAL 5.2 mg/dL (0.2-1.0); MAGNESIUM 2.1 mg/dL (1.8-2.4); PHOSPHORUS 5.9 mg/dL (2.5-4.9); TOTAL PROTEIN, SERUM 6.4 g/dL (6.4-8.2)
[2018-05-12 07:05] LABS: INR 4.06 (0.87-1.13)
[2018-05-12 07:10] LABS: HEMATOCRIT 32 % (39-51); HEMOGLOBIN 10.2 g/dL (13.5-17.5); MEAN CORPUSCULAR HGB CONC 32 g/dl (31.0-36.0); MEAN CORPUSCULAR VOLUME 98 fL (80-96); RDW COEFFICIENT OF VARIATION 23.9 (11.5-15.0); RED BLOOD CELL COUNT(AUTO) 3.29 MIL/uL (4.5-6.0); WHITE BLOOD COUNT (AUTO) 13.6 K/uL (4.3-11.0)
[2018-05-12 07:11] LABS: BASOPHILS # (AUTO) 0.1 /CMM (0.0-0.2); BASOPHILS % (AUTO) 0.7 % (0.0-2.0); EOSINOPHILS % (AUTO) 0.2 % (0.0-6.0); LYMPHOCYTES # (AUTO) 1.6 /CMM (0.8-4.8); LYMPHOCYTES % (AUTO) 11.8 % (20.0-44.0); MONOCYTES # (AUTO) 1.5 /CMM (0.1-1.30); MONOCYTES % (AUTO) 11.3 % (2.0-12.0); NEUTROPHILS # (AUTO) 10.3 /CMM (1.8-8.9); PLATELET COUNT (AUTO) 272 /CMM (150-450)
--- NOTE | 2018-05-12 07:56 | NUR ---
RN NOTE: PATIENT RECEIVED ASLEEP, RESPONSIVE TO TACTILE STIMULI. ON 3lpm O2 VIA NC, NO BREATHING DISTRESS NOTED. ASPIRATION PRECAUTIONS OBSERVED. IV FLUIDS, RUNNING ORDERED. NG-TUBE FEEDING RESIDUAL >300, BROWNISH COLOR, ON HOLD PER ORDERS. MIRELES CATH INTACT, DRAINING WELL. SAFETY MEASURES OBSERVED. WILL CONTINUE TO MONITOR.
[2018-05-12 08:00] VITALS: BP 150/61
[2018-05-12] MEDS: BACLOFEN (10 MG) 10 MG TABLET PO SCH ×2 (09:00→12:50)
[2018-05-12] MEDS: GABAPENTIN 300 MG CAPSULE PO SCH (09:00)
[2018-05-12] MEDS: ASPIRIN 81 MG TAB.CHEW PO SCH (09:00)
[2018-05-12] MEDS: ASCORBIC ACID 500 MG TABLET PO SCH (09:00)
[2018-05-12] MEDS: HYDROGEL DRESSING 90 GM TUBE TP SCH (09:38)
[2018-05-12] MEDS: LIDOCAINE 5% (PATCH) 1 EA PATCH TP SCH (09:38)
--- NOTE | 2018-05-12 10:21 | NUR ---
RN NOTE: HELD AM MEDICATION DUE TO HIGH RESIDUALS. WILL INFORM .
[2018-05-12 12:00] VITALS: BP 128/63
[2018-05-12 16:00] VITALS: BP 120/52
--- NOTE | 2018-05-12 18:00 | NUR ---
RN NOTE: PATIENT SEEN BY DR. SCHWAB GI, KEEP NPO POST MN, PLAN PEG PLACEMENT TOMORROW, SON'S CONTACT INFORMATION PROVIDED TO DR. SCHWAB. MADE HIM AWARE ABOUT NG TUBE RESIDUALS BRWNISH COLOR & RESIDUAL IS >300ML. PATIENT SEEN & EXAMINE BY KEVYN N.P., CLARIFIED ABOUT MEDICATION ADMINISTRATION WITH HIGH RESIDUALS. OK TO GIVE BACLOFAN AT NOON TIME PER KEVYN N.P & OK TO DISCARD RESIDUAL OUTPUT. CONTINUE WITH IV FLUIDS ORDERED. SAFETY MEASURES OBSERVED. CONTINUE TO TURN & REPOSITION. NO FALL/INJURY NOTED. CONTINUE WITH PLAN OF CARE.
--- NOTE | 2018-05-12 19:30 | NUR ---
RN OPENING NOTES: RECEIVED PATIENT ON BED LETHARGIC, SPONTANEOUS EYE OPENING, SHOWS SOME TRACKING. UNABLE TO VERBALIZE. UNABLE TO FOLLOW COMMANDS. ON 3LPM, TENDS TO BE TACHYPNEIC WHEN HE SEES SOMEONE ELSE IN ROOM. SINUS TACH IN MONITOR HR AT 109. IV ACCESS INTACT ON PRATIK PICC LINE. IVF INFUSING ORDERED. SAFETY MEASURES ENSURED. ASPIRATION PRECAUTIONS ENSURED. NGT ON LEFT NARE,PATENT AND INTACT, CLAMPED PER REPORT FOR POSSIBLE PENDING PROCEDURE IN AM. PATIENT WITH GASTRIC RESIDUAL OF 250CC OF DRAK BROWN, REDDISH TINGE GASTRIC FLUID. TO MONITOR.FC INTACT TO A CLOSED SYSTEM. NOTED WITH BILATERAL UPPER EXT SWELLING. TO ELEVATE. SAFETY MEASURES ENSURED. CONTINUOUSLY MONITORED.
[2018-05-12 20:00] VITALS: BP 135/63
[2018-05-13] VITALS: BP 122/61
[2018-05-13] MEDS: IPRATROPIUM NEB FS 0.5 MG/2.5 ML AMPUL.NEB NEB SCH ×4 (01:19→19:51)
[2018-05-13] MEDS: ALBUTEROL HALF STRENGTH 1.25 MG/3 ML VIAL.NEB NEB SCH ×4 (01:19→19:51)
[2018-05-13] MEDS: IV D5/ 0.9% NACL 1,000 ML IV PRN ×2 (03:48→16:27)
[2018-05-13 04:00] VITALS: BP 127/57
[2018-05-13] MEDS: PIPERACILLIN /TAZOBACTAM 3.375 G in IV D5W 50 ML IV SCH ×3 (05:14→17:09)
[2018-05-13 06:46] LABS: INR 3.32 (0.87-1.13)
[2018-05-13 06:57] LABS: CALCIUM, SERUM 9.3 mg/dL (8.5-10.1); CREATININE 1.4 mg/dL (0.6-1.3); MAGNESIUM 2.1 mg/dL (1.8-2.4); PHOSPHORUS 4.4 mg/dL (2.5-4.9); POTASSIUM 4.1 mmol/L (3.5-5.1)
--- NOTE | 2018-05-13 07:03 | NUR ---
RN NOTES: SKIN CARE RENDERED. NO ACUTE CHANGES WITH PATIENT OVERNIGHT. AM LABS AND XRAY DONE. KEPT NGT CLAMPED. SAFETY MEASURES ENSURED; PICC LINE DRESSING CHANGED. AFEBRILE OVERNIGHT. CONTINUED IVF. REMAINED ST ON THE MONITOR. FC REMAINED INTACT. TO ENDORSE TO AM SHIFT RN.
--- NOTE | 2018-05-13 07:10 | NUR ---
TELE/RN NOTES RECEIVED PT IN BED, ALERT, APPEARS LETHARGIC. SINUS TACHY HR 112 ON TELEMONITOR. ON 3L O2 VIA NC, TOLERATING WELL. WITH NGT IN PLACED, CLAMPED. NOTED 300 COFFEE-GROUND RESIDUALS. KEPT NGT CLAMPED. FC INTACT AND IN PLACED, DRAINING TEA-COLORED URINE BY GRAVITY. WITH ONGOING IVF D5NS@100ML/HR INFUSING WELL ON PRATIK PICC LINE. HOB ELEVATED. SAFETY MEASURES AND ASPIRATION PRECAUTION IN PLACED. CALL LIGHT WITHIN REACH. WILL CONT TO MONITOR
[2018-05-13 07:38] LABS: HEMATOCRIT 33 % (39-51); HEMOGLOBIN 10.4 g/dL (13.5-17.5); MEAN CORPUSCULAR HGB CONC 32 g/dl (31.0-36.0); MEAN CORPUSCULAR VOLUME 98 fL (80-96); RDW COEFFICIENT OF VARIATION 23.3 (11.5-15.0); RED BLOOD CELL COUNT(AUTO) 3.35 MIL/uL (4.5-6.0); WHITE BLOOD COUNT (AUTO) 11.4 K/uL (4.3-11.0)
[2018-05-13 07:39] LABS: BASOPHILS # (AUTO) 0.1 /CMM (0.0-0.2); BASOPHILS % (AUTO) 1.1 % (0.0-2.0); EOSINOPHILS % (AUTO) 0.3 % (0.0-6.0); LYMPHOCYTES # (AUTO) 1.8 /CMM (0.8-4.8); LYMPHOCYTES % (AUTO) 16.2 % (20.0-44.0); MONOCYTES # (AUTO) 1.3 /CMM (0.1-1.30); MONOCYTES % (AUTO) 11.4 % (2.0-12.0); NEUTROPHILS # (AUTO) 8.1 /CMM (1.8-8.9); PLATELET COUNT (AUTO) 254 /CMM (150-450)
[2018-05-13 08:00] VITALS: BP 156/62
[2018-05-13] MEDS: LIDOCAINE 5% (PATCH) 1 EA PATCH TP SCH (09:00)
[2018-05-13] MEDS: ASCORBIC ACID 500 MG TABLET PO SCH (09:00)
[2018-05-13] MEDS: HYDROGEL DRESSING 90 GM TUBE TP SCH (09:01)
--- NOTE | 2018-05-13 09:27 | NUR ---
RN NOTES SEEN AND EXAMINED BY DR. DILLON(GI DOCTOR). PER MD, UNABLE TO DO PEG PLACEMENT DUE TO HIGH PT/INR AND LIVER PROBLEM AT THIS TIME. NOTIFIED MD RE: COFFEE GROUND RESIDUALS FROM NGT, PER MD, HOLD FEEDINGS FOR NOW AND CONTINUE TO MONITOR. GIVE PROTONIX 40MG IV BID.
[2018-05-13] MEDS: PANTOPRAZOLE 40 MG VIAL IV SCH ×2 (09:58→16:26)
[2018-05-13 12:00] VITALS: BP 144/51
[2018-05-13 16:00] VITALS: BP 128/45
--- NOTE | 2018-05-13 19:10 | NUR ---
FIRE HYDRANT MECHANIC NOTES RECEIVED PT IN BED, LETHARGIC, NON VERBAL. SINUS TACHY HR 112 ON TELE MONITOR. ON 3L O2 VIA NC, TOLERATING WELL. NGT IN PLACED, CLAMPED. NOTED 150 COFFEE-GROUND RESIDUAL. KEPT NGT CLAMPED. PRATIK PICC LINE, INTACT AND PATENT, IVF INFUSING WELL. NO S/S OF INFILTRATION NOTED. FC INTACT AND IN PLACED, DRAINING TEA-COLORED URINE BY GRAVITY. HOB ELEVATED. SAFETY MEASURES AND ASPIRATION PRECAUTION IN PLACED. CALL LIGHT WITHIN REACH. WILL CONT TO MONITOR. Addendum: 05/14/18 at 0520 by JAIRO GUO RN incorrect residual documentation
--- NOTE | 2018-05-13 19:10 | NUR ---
DATA PROCESSING CONTROL CLERK NOTES RECEIVED PT IN BED, LETHARGIC, NON VERBAL. SINUS TACHY HR 112 ON TELE MONITOR. ON 3L O2 VIA NC, TOLERATING WELL. NGT IN PLACED, CLAMPED. NOTED 350 COFFEE-GROUND RESIDUAL. KEPT NGT CLAMPED. PRATIK PICC LINE, INTACT AND PATENT, IVF INFUSING WELL. NO S/S OF INFILTRATION NOTED. FC INTACT AND IN PLACED, DRAINING TEA-COLORED URINE BY GRAVITY. HOB ELEVATED. SAFETY MEASURES AND ASPIRATION PRECAUTION IN PLACED. CALL LIGHT WITHIN REACH. WILL CONT TO MONITOR.
--- NOTE | 2018-05-13 19:11 | NUR ---
RN NOTES PT IN STABLE CONDITION, NO ACUTE CHANGES THROUGHOUT SHIFT. SAFETY MEASURES AND ASPIRATION PRECAUTION OBSERVED AT ALL TIMES. ALL NEEDS ANTICIPATED. ENDORSED TO PM SHIFT RN FOR TAY
[2018-05-13 20:00] VITALS: BP 139/54
[2018-05-14] VITALS: BP 133/53
[2018-05-14] MEDS: PIPERACILLIN /TAZOBACTAM 3.375 G in IV D5W 50 ML IV SCH ×5 (00:20→23:01)
[2018-05-14] MEDS: ALBUTEROL HALF STRENGTH 1.25 MG/3 ML VIAL.NEB NEB SCH ×4 (00:42→19:08)
[2018-05-14] MEDS: IPRATROPIUM NEB FS 0.5 MG/2.5 ML AMPUL.NEB NEB SCH ×4 (00:42→19:08)
[2018-05-14 04:00] VITALS: BP 129/50
[2018-05-14] MEDS: IV D5/ 0.9% NACL 1,000 ML IV PRN (05:23)
[2018-05-14 06:02] LABS: CALCIUM, SERUM 9.4 mg/dL (8.5-10.1); CREATININE 1.8 mg/dL (0.6-1.3); PHOSPHORUS 5.8 mg/dL (2.5-4.9); POTASSIUM 4.5 mmol/L (3.5-5.1)
[2018-05-14 06:04] LABS: HEMATOCRIT 32 % (39-51); MEAN CORPUSCULAR HGB CONC 31 g/dl (31.0-36.0); MEAN CORPUSCULAR VOLUME 99 fL (80-96); PLATELET COUNT (AUTO) 188 /CMM (150-450); RDW COEFFICIENT OF VARIATION 24.2 (11.5-15.0); RED BLOOD CELL COUNT(AUTO) 3.25 MIL/uL (4.5-6.0); WHITE BLOOD COUNT (AUTO) 11.9 K/uL (4.3-11.0)
--- NOTE | 2018-05-14 06:30 | NUR ---
BOTTOM LOADER NOTES PT IN BED, LETHARGIC, NON VERBAL. SINUS TACHY HR 112 ON TELE MONITOR. ON 3L O2 VIA NC, TOLERATING WELL. NGT IN PLACED, CLAMPED. PRATIK PICC LINE, INTACT AND PATENT, IVF INFUSING WELL. NO S/S OF INFILTRATION NOTED. AFEBRILE. FC INTACT AND IN PLACED, DRAINING WELL BY GRAVITY. HOB ELEVATED. SAFETY MEASURES AND ASPIRATION PRECAUTION IN PLACED. CALL LIGHT WITHIN REACH. WILL ENDORSE TO NEXT SHIFT ACCORDINGLY FOR TAY.
[2018-05-14 07:12] LABS: LYMPHOCYTES % (MANUAL) 13 % (16-48); MONOCYTES % (MANUAL) 17 % (0-11.0); NEUTROPHILS % (MANUAL) 70 (42-76)
--- NOTE | 2018-05-14 07:15 | NUR ---
TELE/RN INITIAL NOTES RECEIVED PT IN BED, ALERT, APPEARS LETHARGIC. SINUS TACHY HR 109 ON TELEMONITOR. ON 3L O2 VIA NC, TOLERATING WELL. WITH NGT IN PLACED, CLAMPED. NOTED 300 COFFEE-GROUND RESIDUALS. KEPT NGT CLAMPED. FC INTACT AND IN PLACED, DRAINING TEA-COLORED URINE BY GRAVITY. WITH ONGOING IVF D5NS@100ML/HR INFUSING WELL ON PRATIK PICC LINE. HOB ELEVATED. SAFETY MEASURES AND ASPIRATION PRECAUTION IN PLACED. CALL LIGHT WITHIN REACH. WILL CONT TO MONITOR
[2018-05-14 08:00] VITALS: BP 113/47
[2018-05-14] MEDS: LIDOCAINE 5% (PATCH) 1 EA PATCH TP SCH (08:51)
[2018-05-14] MEDS: ASCORBIC ACID 500 MG TABLET PO SCH (08:51)
[2018-05-14] MEDS: HYDROGEL DRESSING 90 GM TUBE TP SCH (08:51)
[2018-05-14] MEDS: PANTOPRAZOLE 40 MG VIAL IV SCH ×2 (08:51→16:08)
[2018-05-14] MEDS: IV 1/2NS 1000 ML 1,000 ML IV PRN ×2 (09:54→22:50)
[2018-05-14 12:00] VITALS: BP 116/51
[2018-05-14 13:35] LABS: INR 3.87 (0.87-1.13)
[2018-05-14 16:00] VITALS: BP 112/45
--- NOTE | 2018-05-14 19:10 | NUR ---
RN NOTES PT IN STABLE CONDITION. NO ACUTE CHANGES THROUGHOUT SHIFT. SAFETY MEASURES OBSERVED AT ALL TIMES. ALL NEEDS ANTICIPATED
--- NOTE | 2018-05-14 19:45 | NUR ---
RN INITIAL NOTES: RECEIVED REPORT FROM CLIFFORD ESPINAL. PT IN BED, AWAKE, NON VERBAL, OPEN EYES SPONTANEOUSLY, LETHARGIC, MD AWARE. PT HAS NGT INSERTED ON PT'S LEFT NARE, CURRENTLY ON CLAMPED, NO FEEDING GIVEN PER DAY RN DUE TO HIGH RESIDUAL AND COFFEE GROUND RESIDUAL. MD DR SCHWAB MADE AWARE. NO NEW ORDERS RECEIVED PER DAY RN. LEFT UA PICC LINE WITH DOUBLE LUMEN CATHETER PATENT AND FLUSHING WELL, RED PORT FLUSHING WELL WITH NS BUT NO BLOOD RETURN NOTED, PURPLE PORT WITH GOOD BLOOD RETURN AND FLUSHES WELL WITH NS. BLE OFFLOADED. MIRELES CATHETER IN PLACED NOTED TO BE DRAINING WITH TEA COLORED URINE. PT IS JAUNDICE AND WITH ICTERIC SCLERA. APPEARS CALM WITH NO FACIAL GRIMACE NOTED. ON SINUS TACHYCARDIA HR 102. SAFETY PRECAUTIONS FOR FALL INITIATED, CALL LIGHT IN REACH, WILL CONTINUE MONITORING PT.
[2018-05-14 20:00] VITALS: BP 118/42
--- NOTE | 2018-05-14 20:10 | NUR ---
RN NOTES: PT'S ABDOMEN SOFT TO TOUCH, WITH ACTIVE BOWEL SOUND HEARD UPON AUSCULTATION. NGTUBE PATENCY CHECKED PERFORMED, NGTUBE IS PATENT HOWEVER UPON CHECKING FOR RESIDUAL, NOTED A COFFEE GROUND RESIDUAL AND SOME BROWNISH COLORED DISCHARGE ABOUT 350ML. PLACED ON CLAMPED. PLACED PT ON HIGH FOWLERS POSITION TO PREVENT ASPIRATION. AUTHORIZATION COORDINATOR MADE AWARE
[2018-05-15] VITALS: BP 125/54
--- NOTE | 2018-05-15 | NUR ---
RN NOTES: RECHECK RESIDUAL, REMAINS ELEVATED ON 300, SELINA JOHN, HOUSEHOLD CHORES NOTIFIED, WILL CONTINUE TO HOLD FEEDING, NGTUBE REMAINS CLAMPED
[2018-05-15] MEDS: IPRATROPIUM NEB FS 0.5 MG/2.5 ML AMPUL.NEB NEB SCH ×4 (01:46→19:15)
[2018-05-15] MEDS: ALBUTEROL HALF STRENGTH 1.25 MG/3 ML VIAL.NEB NEB SCH ×4 (01:46→19:15)
[2018-05-15 04:00] VITALS: BP 112/53
[2018-05-15] MEDS: PIPERACILLIN /TAZOBACTAM 3.375 G in IV D5W 50 ML IV SCH ×4 (05:01→23:54)
--- NOTE | 2018-05-15 06:36 | NUR ---
RN CLOSING NOTES: PT IN BED, REMAINS NON VERBAL, LETHARGIC, ON 3L NC RESPIRATION EVEN AND UNLABORED. NGTUBE ON LEFT NARE REMAINS PATENT AND FLUSHING WELL, HOWEVER REMAINS WITH HIGH RESIDUAL 300 COFFEE GROUND. NGTUBE REMAINS CLAMPED. PRATIK PICC LINE REMAINS IN PLACED, PURPLE PORT WITH GOOD BLOOD RETURN, INFUSING WITH 1/2 NS AT 90ML/HR. REMAINS ON SINUS TACHYCARDIA HR 105. VS REMAINS STABLE, NEEDS ATTENDED. NO S/S OF ACTIVE BLEEDING NOTED. SAFETY PRECAUTIONS FOR FALL REMAINS ENGAGED, CALL LIGHT IN REACH, WILL ENDORSE TO DAY RN FOR CONTINUITY OF CARE.
[2018-05-15 06:50] LABS: HEMATOCRIT 30 % (39-51); HEMOGLOBIN 9.8 g/dL (13.5-17.5); MEAN CORPUSCULAR HGB CONC 32 g/dl (31.0-36.0); MEAN CORPUSCULAR VOLUME 97 fL (80-96); PLATELET COUNT (AUTO) 162 /CMM (150-450); RDW COEFFICIENT OF VARIATION 25.5 (11.5-15.0); RED BLOOD CELL COUNT(AUTO) 3.14 MIL/uL (4.5-6.0); WHITE BLOOD COUNT (AUTO) 9.4 K/uL (4.3-11.0)
[2018-05-15 07:08] LABS: INR 3.34 (0.87-1.13)
[2018-05-15 07:09] LABS: CALCIUM, SERUM 9.5 mg/dL (8.5-10.1); CREATININE 1.6 mg/dL (0.6-1.3); MAGNESIUM 2.1 mg/dL (1.8-2.4); PHOSPHORUS 3.9 mg/dL (2.5-4.9); POTASSIUM 3.3 mmol/L (3.5-5.1)
--- NOTE | 2018-05-15 07:30 | NUR ---
INITIAL PT IN BED, NON VERBAL, LETHARGIC, ON 3L NC RESPIRATION EVEN AND UNLABORED. NGTUBE ON LEFT NARE REMAINS PATENT AND FLUSHING WELL, HOWEVER REMAINS TO FEEDING FOR HIGH RESIDUALS CLAMPED. PRATIK PICC LINE REMAINS IN PLACED, PURPLE PORT WITH GOOD BLOOD RETURN, INFUSING WITH 1/2 NS AT 90ML/HR. REMAINS ON SINUS TACHYCARDIA HR 103. VS REMAINS STABLE, NEEDS ATTENDED. NO S/S OF ACTIVE BLEEDING NOTED. SAFETY PRECAUTIONS FOR FALL REMAINS ENGAGED, CALL LIGHT IN REACH, BED IN LOW POSITION LOCKED WILL CONTINUE TO MONITOR
[2018-05-15 08:00] VITALS: BP 121/45
[2018-05-15] MEDS: PANTOPRAZOLE 40 MG VIAL IV SCH ×2 (09:05→16:35)
[2018-05-15] MEDS: LIDOCAINE 5% (PATCH) 1 EA PATCH TP SCH (09:05)
[2018-05-15] MEDS: ASCORBIC ACID 500 MG TABLET PO SCH (09:05)
[2018-05-15] MEDS: HYDROGEL DRESSING 90 GM TUBE TP SCH (09:17)
[2018-05-15 09:24] LABS: NEUTROPHILS % (MANUAL) 75 (42-76)
[2018-05-15 09:25] LABS: EOSINOPHILS % (MANUAL) 1 % (0-4); LYMPHOCYTES % (MANUAL) 11 % (16-48); MONOCYTES % (MANUAL) 13 % (0-11.0)
[2018-05-15] MEDS ORDERED: POTASSIUM CHLORIDE 20 MEQ POWDER PACKET NG SCH (10:30)
[2018-05-15] MEDS: IV 1/2NS 1000 ML 1,000 ML IV PRN (11:45)
[2018-05-15 12:00] VITALS: BP 113/50
--- NOTE | 2018-05-15 14:36 | NUR ---
ИРИНА FROM [facility] SPOKE WITH [employer] FAMILY MEMBER ;AFTER CALLING SON WHO ASKED THAT KYLIE GIFFORD CALL [facility].
[2018-05-15 16:00] VITALS: BP 133/48
[2018-05-15] MEDS: JEVITY 1.2 CAL 1,000 ML BOTTLE GT PRN (16:35)
[2018-05-15 20:00] VITALS: BP 149/51
[2018-05-16] VITALS: BP 151/61
[2018-05-16] MEDS: IV 1/2NS 1000 ML 1,000 ML IV PRN (00:05)
[2018-05-16] MEDS: ALBUTEROL HALF STRENGTH 1.25 MG/3 ML VIAL.NEB NEB SCH ×4 (02:07→19:22)
[2018-05-16] MEDS: IPRATROPIUM NEB FS 0.5 MG/2.5 ML AMPUL.NEB NEB SCH ×4 (02:07→19:22)
[2018-05-16 04:00] VITALS: BP 130/59
[2018-05-16] MEDS: PIPERACILLIN /TAZOBACTAM 3.375 G in IV D5W 50 ML IV SCH ×3 (05:52→18:18)
[2018-05-16] MEDS: TRAMADOL HCL 50 MG TABLET PO PRN ×2 (05:53→16:45)
[2018-05-16 06:31] LABS: HEMATOCRIT 31 % (39-51); HEMOGLOBIN 9.7 g/dL (13.5-17.5); MEAN CORPUSCULAR HGB CONC 31 g/dl (31.0-36.0); MEAN CORPUSCULAR VOLUME 98 fL (80-96); PLATELET COUNT (AUTO) 146 /CMM (150-450); RDW COEFFICIENT OF VARIATION 24.6 (11.5-15.0); RED BLOOD CELL COUNT(AUTO) 3.22 MIL/uL (4.5-6.0); WHITE BLOOD COUNT (AUTO) 9.1 K/uL (4.3-11.0)
--- NOTE | 2018-05-16 06:43 | NUR ---
RN NOTE PATIENT REMAINED STABLE DURING MY SHIFT, NO ACUTE CHANGES, STILL LETHARGIC, NON-VERBAL, TURNED AND REPOSITION Q 2 HOURS, WOUND CARE PROVIDED, SKIN PICTURES WERE TAKEN AND PLACED IN THE CHART, ALL SAFETY MEASURES TAKEN, WILL ENDORSE TO AM SHIFT TO CONTINUE CARE
[2018-05-16 06:54] LABS: INR 3.39 (0.87-1.13)
[2018-05-16 07:17] LABS: CALCIUM, SERUM 9.5 mg/dL (8.5-10.1); CREATININE 1.9 mg/dL (0.6-1.3); MAGNESIUM 2.2 mg/dL (1.8-2.4); POTASSIUM 3.9 mmol/L (3.5-5.1)
--- NOTE | 2018-05-16 07:30 | NUR ---
ISOTOPE TECHNOLOGIST/OPENING NOTES RECEIVED PT. IN BED NON VERBAL, AND LETHARGIC. PT.'S TELE MONITOR IS READING SINUS TACHYCARDIC 114 BPM. PT. IS BREATHING UNLABORED ON ROOM AIR. NO S/S OF ACUTE DISTRESS. IV FLUIDS RUNNING AT 90 ML/HR. G TUBE FEEDING RUNNING AT 10 ML/HR. MIRELES CATHETER HAS SOUTH, AND CLEAR URINE OUTPUT. BED IS IN LOWEST, AND LOCKED POSITION. 2 SIDE RAILS UP AND CALL LIGHT IS WITHIN REACH. ALL NEEDS MET. WILL CONTINUE TO ASSESS AND MONITOR.
[2018-05-16 07:39] LABS: LYMPHOCYTES % (MANUAL) 16 % (16-48); MONOCYTES % (MANUAL) 5 % (0-11.0); NEUTROPHILS % (MANUAL) 79 (42-76)
[2018-05-16 08:00] VITALS: BP 130/52
[2018-05-16] MEDS: HYDROGEL DRESSING 90 GM TUBE TP SCH (09:00)
[2018-05-16] MEDS: LIDOCAINE 5% (PATCH) 1 EA PATCH TP SCH (09:04)
[2018-05-16] MEDS: ASCORBIC ACID 500 MG TABLET PO SCH (09:04)
[2018-05-16] MEDS: PANTOPRAZOLE 40 MG VIAL IV SCH (09:04)
--- NOTE | 2018-05-16 11:54 | NUR ---
Social service consult requested by block and case maker Aury regarding family requesting a poleyard supervisor bedside. ISHA contacted [facility] and spoke to Francine and requested for a poleyard supervisor for the pt. Francine informed ISHA she will ask the poleyard supervisor his availability and follow up with ISHA. ISHA also contacted the pt's son and left him a voicemail message requesting a call back. ISHA informed pt's RN Abby as well in regards to pt's family wanting a poleyard supervisor. Addendum: 05/16/18 at 1519 by ARRON VIEIRA ISHA called [facility] to inquire if a poleyard supervisor did come to visit pt. Per Aylin the poleyard supervisor did visit and bless the pt. at noon. ISHA updated pt's son Carlo.
[2018-05-16 12:00] VITALS: BP 126/53
--- NOTE | 2018-05-16 12:08 | NUR ---
A HOT TAMALE WORKER HAD VISITED THE PT.
[2018-05-16] MEDS: IV D5W 1,000 ML IV PRN (13:32)
[2018-05-16 16:00] VITALS: BP 121/55
[2018-05-16] MEDS: JEVITY 1.2 CAL 1,000 ML BOTTLE GT PRN (16:58)
[2018-05-16] MEDS: METOCLOPRAMIDE HCL 10 MG/2 ML VIAL IM SCH ×2 (17:34→22:19)
--- NOTE | 2018-05-16 19:37 | NUR ---
FLOUR DISTRIBUTOR/CLOSING NOTES RECEIVED PT. IN BED NON VERBAL, AND LETHARGIC. PT.'S ON TELE MONITOR READING. PT. IS BREATHING UNLABORED ON OXYGEN AT 4L/MIN VIA NASAL CANNULA. NO S/S OF ACUTE DISTRESS. IV FLUIDS RUNNING AT 100 ML/HR. G TUBE FEEDING RUNNING AT 10 ML/HR. MIRELES CATHETER HAS SOUTH, AND CLEAR URINE OUTPUT. BED IS IN LOWEST, AND LOCKED POSITION. 2 SIDE RAILS UP AND CALL LIGHT IS WITHIN REACH. ALL NEEDS MET. WILL ENDORSE REPORT TO NURSE.
[2018-05-16 20:00] VITALS: BP 111/48
[2018-05-17] VITALS: BP 114/58
[2018-05-17] MEDS: PIPERACILLIN /TAZOBACTAM 3.375 G in IV D5W 50 ML IV SCH ×4 (00:06→17:01)
[2018-05-17] MEDS: IV D5W 1,000 ML IV PRN ×2 (00:13→11:40)
[2018-05-17] MEDS: ALBUTEROL HALF STRENGTH 1.25 MG/3 ML VIAL.NEB NEB SCH ×3 (01:37→13:49)
[2018-05-17] MEDS: IPRATROPIUM NEB FS 0.5 MG/2.5 ML AMPUL.NEB NEB SCH ×3 (01:37→13:49)
[2018-05-17 04:00] VITALS: BP 102/48
--- NOTE | 2018-05-17 06:44 | NUR ---
RN NOTE PATIENT IS STILL LETHARGIC, SINUS TACHYCARDIA 104 ON THE MONITOR, NON-LABORED RESPIRATION, TURNED AND REPOSITION Q 2 HOURS, WOUND CARE PROVIDED, ALL SAFETY MEASURES
--- NOTE | 2018-05-17 07:59 | NUR ---
QUARTER FOLDER OPENING NOTES BEDSIDE RAILS ARE UPX2. BED IS LOCKED AND LOWERED. CALL LIGHT IS WITHIN REACH. IV LINE IS INTACT AND PATENT. WILL CONTINUE TO MONITOR PATIENT.
[2018-05-17 08:00] VITALS: BP 91/36
--- NOTE | 2018-05-17 08:23 | NUR ---
WOUND CARE CONSULT: PT SEEN FOR LEFT HIP INTACT DEEP TISSUE INJURY. PT NOTED TO HAVE GENERALIZED EDEMA WITH 4+ PITTING EDEMA TO LOWER EXTREMITIES, SKIN AND SCLERA JAUNDICE. RECOMMENDATIONS MADE FOR SKIN PROTECTION AND WOUND CARE. DISCUSSED WITH NURSING STAFF. PT HAS MULTIPLE CO-MORBIDITIES INCLUDING , PNA, HX ENDOCARDITIS, HX BRAIN AND LUNG ABSCESSES, METABOLIC ENCEPHALOPATHY, ACUTE RENAL FAILURE, BEDBOUND STATUS. DUE TO MULTIPLE CO-MORBIDITIES FUTURE SKIN BREAKDOWN MAY BE UNAVOIDABLE. WILL SEE PRN. PT ON [facility] AIRSS BED. IN AGREEMENT WITH PLAN OF CARE. Addendum: 05/17/18 at 0827 by MICHAEL RANDOLPH WNDNU Amended: Links added.
[2018-05-17] MEDS: ASCORBIC ACID 500 MG TABLET PO SCH (09:04)
[2018-05-17] MEDS: METOCLOPRAMIDE HCL 10 MG/2 ML VIAL IM SCH ×3 (09:04→16:59)
[2018-05-17] MEDS: LIDOCAINE 5% (PATCH) 1 EA PATCH TP SCH (09:07)
[2018-05-17] MEDS: HYDROGEL DRESSING 90 GM TUBE TP SCH (09:08)
[2018-05-17 12:00] VITALS: BP 90/35
[2018-05-17 16:00] VITALS: BP 107/33
--- NOTE | 2018-05-17 17:45 | NUR ---
PATIENT AT 17:45. INFORMED SON OBED RAE [phone]. FAMILY TO CALL BACK TO INFORM IF THEY WILL BE COMING TO SEE PATIENT.
--- NOTE | 2018-05-17 17:54 | NUR ---
PATIENT NO VITAL SIGNS,NONRESPONSIVE PRONOUNCED WITH ANOTHER RN SONIYA. MD NOTIFIED,NURSING SUP NOTIFIED MAXIM.
--- NOTE | 2018-05-17 18:10 | NUR ---
CALLED [facility]. PER [facility] OK TO RELEASE PATIENTS BODY APPROPRIATELY.
--- NOTE | 2018-05-17 20:00 | NUR ---
BLUE LINE OPERATOR NOTE BODY IS CLEANED BY DAY SHIFT. WILL DO POST CARE, ALSO FAMILY AT BED SIDE. GIVEN THEM TIME FOR GRIEVING.
--- NOTE | 2018-05-17 20:25 | NUR ---
DIRECT ENTRY MIDWIFE NOTE FAMILY LEFT THE ROOM, SAKSHI CLAY CALLED THE [employer] AT [place] FOR THE BODY TO BE TAKEN AWAY. PER SON MORTUARY WILL CALL THE HOSPITAL ABOUT THE TIMING WHEN THEY WILL COME TO EXPLORATION GEOLOGIST THE BODY. WILL FOLLOW UP.
--- NOTE | 2018-05-17 21:00 | NUR ---
TELE 1 RN NOTE BODY LABELED WITH NAME TAG AND BAGGED THE BODY. TOOK THE BODY DOWN TO [facility] WITH SECURITY.
== END 2018-05-17 21:50 | disposition expired | DRG 871 ==
LOC: ER 14:28 → TELE-TD 16:43 → TELE1 05-09 11:13
PROVIDERS: ADMIT Internal Medicine; ATTEND Internal Medicine
DX: A41.9 Sepsis, unspecified organism (principal); I21.4 Non-ST elevation (NSTEMI) myocardial infarction; J96.21 Acute and chronic respiratory failure with hypoxia; G93.41 Metabolic encephalopathy; K72.00 Acute and subacute hepatic failure without coma; J15.6 Pneumonia due to other Gram-negative bacteria; I50.33 Acute on chronic diastolic (congestive) heart failure; N17.9 Acute kidney failure, unspecified; E87.0 Hyperosmolality and hypernatremia; E87.2 Acidosis; N39.0 Urinary tract infection, site not specified; D68.9 Coagulation defect, unspecified; K56.7 Ileus, unspecified; R65.20 Severe sepsis without septic shock; Z66 Do not resuscitate; D63.8 Anemia in other chronic diseases classified elsewhere; E87.5 Hyperkalemia; R47.02 Dysphasia; Z86.19 Personal history of other infectious and parasitic diseases; Z86.718 Personal history of other venous thrombosis and embolism; F19.11 Other psychoactive substance abuse, in remission; I35.8 Other nonrheumatic aortic valve disorders; I11.0 Hypertensive heart disease with heart failure; R13.10 Dysphagia, unspecified; R74.0 Nonspecific elevation of levels of transaminase and lactic acid dehydrogenase [LDH]; L89.152 Pressure ulcer of sacral region, stage 2; B19.20 Unspecified viral hepatitis C without hepatic coma; K76.0 Fatty (change of) liver, not elsewhere classified; Z86.61 Personal history of infections of the central nervous system; Z86.711 Personal history of pulmonary embolism
CPT/HCPCS: 36415; 36600; 71045-TC; 71250-TC; 74018; 80048-TC; 80053-TC; 80061-TC; 80074; 80076-TC; 80202-TC; 81000-TC; 82140-TC; 82803-TC; 82962-TC; 83540-TC; 83605-TC; 83690-TC; 83735-TC; 83880; 84100-TC; 84443-TC; 84484-TC; 85025-TC; 85610-TC; 85652-TC; 85730-TC; 87040-TC; 87070-TC; 87081-TC; 87086-TC; 87806; 92526; 92611-TC; 93307-TC; 94760-TC; 94799-TC; A4217; A4606; A6248; C9113; J1650; J1940; J2543; J2765; J3370; J3480; J3490; J7030; J7042; J7050; J7060; J7070; Z7610